=== PATIENT | male | born 1975 | race Caucasian/White ===

== ENCOUNTER 2017-02-24 23:13 | Emergency (ER) | payer OTHER ==
--- NOTE | 2017-02-25 02:16 | ED ---
Upper Extremity Pain - HPI Summary HPI Summary: Rt hand dominant pt here w/ lac to palmar aspect of Rt middle finger while cutting meat earlier tonight. Reports he ran his finger under water after injury as it was bleeding and looked deep. He applied superglue and bleeding has been controlled. He denies numbness, tingling, weakness. Just came in to get it checked out as he was concerned about how deep it was. Reports he was able to move his finger after injury, including flexion. Imms are UTD. - History of Current Complaint Chief Complaint: EDLacSutureRecheck Stated Complaint: RT MIDDLE FINGER LAC Time Seen by Provider: 02/25/17 01:23 Hx Obtained From: Patient - Allergies/Home Medications Allergies/Adverse Reactions: Allergies Allergy/AdvReac Type Severity Reaction Status Date / Time No Known Allergies Allergy Verified 01/19/16 10:30 PMH/Surg Hx/FS Hx/Imm Hx Previously Healthy: Yes Endocrine/Hematology History: Reports: Hx Diabetes - diet controlled Denies: Hx Anticoagulant Therapy, Hx Blood Disorders, Hx Thyroid Disease Respiratory History: Denies: Hx Asthma, Hx Chronic Obstructive Pulmonary Disease (COPD) GI History: Denies: Hx Ulcer - Surgical History Surgery Procedure, Year, and Place: bilat knee surgeries - acl right. acl/mcl left - Immunization History Immunizations Up to Date: Yes Infectious Disease History: No Infectious Disease History: Denies: Hx Clostridium Difficile, Hx Hepatitis, Hx Human Immunodeficiency Virus (HIV), Hx of Known/Suspected MRSA, Hx Shingles, Traveled Outside the [place] in Last 30 Days - Family History Known Family History: Positive: Cardiac Disease - mother, Hypertension - mother , Diabetes - maternal grandmother - Social History Occupation: Employed Full-time - software sales Lives: With Family - son Alcohol Use: Rare Hx Substance Use: No Substance Use Type: Reports: None Hx Tobacco Use: No Smoking Status (MU): Never Smoked Tobacco Review of Systems Constitutional: Negative Negative: Fever, Chills, Fatigue Positive: no symptoms reported Positive: Myalgia - area is sore w/ flexion, Edema Skin: Other - lac Neurological: Negative Psychological: Normal All Other Systems Reviewed And Are Negative: Yes Physical Exam Triage Information Reviewed: Yes Vital Signs On Initial Exam: Initial Vitals Temp Pulse Resp BP Pulse Ox 97.5 F 76 18 157/87 95 02/24/17 23:17 02/24/17 23:17 02/24/17 23:17 02/24/17 23:17 02/24/17 23:17 Vital Signs Reviewed: Yes Appearance: Positive: Well-Appearing, No Pain Distress, Well-Nourished Skin: Positive: Warm, Dry - laceration over palmar aspect of Rt middle finger scabbed and bleeding controlled - subtle ecchymosis about the area Head/Face: Positive: Normal Head/Face Inspection Eyes: Positive: Normal, EOMI ENT: Positive: Hearing grossly normal, Pharynx normal Respiratory/Lung Sounds: Positive: Breath Sounds Present Cardiovascular: Positive: Pulses are Symmetrical in both Upper and Lower Extremities Musculoskeletal: Positive: Normal, Strength/ROM Intact Neurological: Positive: Normal, Sensory/Motor Intact, Alert, Oriented to Person Place, Time, CN Intact II-III Psychiatric: Positive: Normal - [place] Coma Scale Coma Scale Total: 15 Procedures - Laceration/Wound Repair 1 Location: upper extremity - Rt middle finger Description: Linear Length, Depth and Shape: 1cm x 1mm - blood clot in place and tissue adhered despite soaking - no bleeding Betadine Prep?: No Irrigated w/ Saline (ccs): 100 - hibaclens soak w/ sterile water Laceration/Wound Explored: clean Closure: Skin Adhesive, SteriStrips Layer Closure?: No Sterile Dressing Applied?: Yes - dermabond/steristrip - hemodynamically stable - splint placed - N/V intact Diagnostics - Vital Signs Vital Signs Temp Pulse Resp BP Pulse Ox 02/24/17 23:17 97.5 F 76 18 157/87 95 - Laboratory Lab Statement: Any lab studies that have been ordered have been reviewed, and results considered in the medical decision making process. Course/Dx - Course Course Of Treatment: Rt middle finger lac hours ago - pt cleaned by running under water then closed with superglue. Later removed this and cleaned wound more - bleeding controlled. Denies n/t/w. Flexion strength is 5/5 and w/o pain or weakness. Discussed options of closure with pt - since skin is already approximated and wound sealing, offered steristrips w/ dermabond vs. sutures. Pt opted for the prior. Discussed care of wound and danger s/sx of when to seek medical attention. He agrees w plan,. - Diagnoses Provider Diagnoses: Laceration of right middle finger Discharge - Discharge Plan Condition: Stable Disposition: HOME Patient Education Materials: Finger Laceration (ED), Skin Adhesive Care (ED), Steristrips (ED) Referrals: No Primary Care Phys,NOPCP [Primary Care Provider] - [facility] [place] [facility] [Outside] Additional Instructions: Keep wound clean, dry and steristrips/splint intact. Do not remove steristrips - they will fall off on their own in about 5 days. You may wash hands in 48 hours but do not soak your wound. Use splint to prevent wound from opening. Wound should heal in 10 days - followup with PCP then for wound check. Call Sunday to schedule an appointment. Implement rest, ice, elevation for pain, swelling, bruising *if you develop redness, swelling, streaking, purulent drainage, fever, chills, seek medical attention sooner
[2017-02-25 02:54] VITALS: BP 145/74
== END 2017-02-25 02:53 | disposition home or self-care (01) ==
LOC: ED 23:13
DX: S61.212A Laceration without foreign body of right middle finger without damage to nail, initial encounter (principal); W45.8XXA Other foreign body or object entering through skin, initial encounter; Y93.G1 Activity, food preparation and clean up; Y92.9 Unspecified place or not applicable
CPT/HCPCS: 12001; 99281